=== PATIENT | female | born 1970 | race Caucasian/White ===

== ENCOUNTER 2018-05-08 07:45 | Outpatient (RCR) | payer BC ==
[~2018-05-08 07:45] MED LIST: DROSPIRENONE; PERCOCET 5/321 UDTAB PO
== END 2018-07-24 | disposition home or self-care (01) ==
LOC: WSPT
DX: M51.16 Intervertebral disc disorders with radiculopathy, lumbar region (principal)

== ENCOUNTER → 2018-11-04 | Outpatient (CLI) | payer BC | LOC: MC.RAD 09:04 | DX: Z12.31 Encounter for screening mammogram for malignant neoplasm of breast (principal) ==

== ENCOUNTER 2020-10-31 07:24 | Outpatient (CLI) | payer BC ==
[2020-10-31] VITALS (8 sets, daily range): BP systolic 122–154; BP diastolic 57–86; PULSE 66–84
[~2020-10-31] VITALS: Ht 157.5 cm; Wt 92.9 kg
[2020-10-31] MEDS ORDERED: TOPAMAX50 MG PO (07:51)
[2020-10-31] MEDS ORDERED: PROTONIX 40MG T40 MG PO (07:52)
[2020-10-31] MEDS ORDERED: WELLBUTRIN SR150 M1 PO (07:52)
[2020-10-31 10:09] LABS: GLUCOSE,CSF 53 mg/dL (40-70); TOTAL PROTEIN,CSF 62 mg/dL (15-45)
[2020-10-31 10:46] LABS: CSF APPEARANCE CLEAR; CSF COLOR COLORLESS; CSF RBC 70 /mm3 (0-0)
[2020-10-31 10:47] LABS: CSF MONONUCLEAR 100 % (70-100); CSF POLYMORPHONUCLEAR 0 % (0-6)
--- NOTE | 2020-10-31 11:00 | NUR ---
DC instructions were reviewed, pt expressed understanding. She was assisted out to 's car by wheelchair.
[2020-11-01] MEDS ORDERED: FIORICET 325 MG1 TA1 PO (18:07)
== END 2020-10-31 14:49 | disposition home or self-care (01) ==
LOC: COL.RAD 07:24
PROVIDERS: Family Medicine
DX: G93.2 Benign intracranial hypertension (principal)

== ENCOUNTER 2020-11-01 16:30 | Emergency (ER) | payer BC ==
[~2020-11-01] VITALS: Ht 157.5 cm; Wt 90.9 kg
[~2020-11-01 16:30] MED LIST changes: +PROTONIX 40MG T40 MG PO; +TOPAMAX50 MG PO; +WELLBUTRIN SR150 M1 PO
[2020-11-01 16:40] VITALS: TEMP 98.4
[2020-11-01 18:01] VITALS: BP 131/74; PULSE 76
[2020-11-01] MEDS ORDERED: FIORICET 325 MG1 TA1 PO (18:07)
== END 2020-11-01 18:01 | disposition home or self-care (01) ==
LOC: COL.ER 16:30
DX: G97.1 Other reaction to spinal and lumbar puncture (principal); G93.2 Benign intracranial hypertension
CPT/HCPCS: J7030

== ENCOUNTER 2020-11-02 08:05 | Emergency (ER) | payer BC ==
[~2020-11-02] VITALS: Ht 157.5 cm; Wt 90.9 kg
[~2020-11-02 08:05] MED LIST changes: +FIORICET 325 MG1 TA1 PO
[2020-11-02 08:13] VITALS: TEMP 97.3
[2020-11-02 11:12] VITALS: BP 124/74; PULSE 78
== END 2020-11-02 11:11 | disposition home or self-care (01) ==
LOC: COL.ER 08:05
DX: G97.1 Other reaction to spinal and lumbar puncture (principal)
CPT/HCPCS: J2405; J7030

== ENCOUNTER → 2021-10-20 | Outpatient (CLI) | payer BC | LOC: MC.RAD 13:03 | DX: Z12.31 Encounter for screening mammogram for malignant neoplasm of breast (principal) ==